=== PATIENT | female | born 1975 | race Caucasian/White ===

== ENCOUNTER 2017-06-18 12:19 | Emergency (ER) | payer OTHER ==
[~2017-06-18] VITALS: Ht 157.5 cm; Wt 113.2 kg
[2017-06-18 12:23] VITALS: BP 141/86; TEMP 99
[2017-06-18] MEDS ORDERED: DOXYCYCLINE 10100 MG PO (13:11)
[2017-06-18 14:12] VITALS: PULSE 74
== END 2017-06-18 14:13 | disposition home or self-care (01) ==
LOC: COL.ER 12:19
DX: L02.411 Cutaneous abscess of right axilla (principal); L03.111 Cellulitis of right axilla; F17.210 Nicotine dependence, cigarettes, uncomplicated

== ENCOUNTER 2017-10-26 22:49 | Emergency (ER) | payer OTHER ==
[~2017-10-26] VITALS: Ht 157.5 cm; Wt 106.4 kg
[~2017-10-26 22:49] MED LIST: DOXYCYCLINE 10100 MG PO
[2017-10-26 22:52] VITALS: BP 152/92
[2017-10-27 00:46] VITALS: PULSE 65; TEMP 97.5
== END 2017-10-27 00:45 | disposition home or self-care (01) ==
LOC: COL.ER 22:49
DX: H02.841 Edema of right upper eyelid (principal); H02.842 Edema of right lower eyelid; H02.844 Edema of left upper eyelid; H02.845 Edema of left lower eyelid; F32.9 Major depressive disorder, single episode, unspecified; F41.9 Anxiety disorder, unspecified; F17.210 Nicotine dependence, cigarettes, uncomplicated; Z98.890 Other specified postprocedural states
CPT/HCPCS: J8540

== ENCOUNTER 2018-03-22 11:50 | Emergency (ER) | payer OTHER ==
[~2018-03-22] VITALS: Ht 152.4 cm; Wt 113.6 kg
[2018-03-22 11:55] VITALS: BP 131/74; PULSE 72; TEMP 98.4
[2018-03-22] MEDS ORDERED: GENTAMICIN EYE D5 ML OD (12:57)
== END 2018-03-22 13:06 | disposition home or self-care (01) ==
LOC: COL.ER 11:50
DX: B99.9 Unspecified infectious disease (principal); H10.89 Other conjunctivitis; F17.210 Nicotine dependence, cigarettes, uncomplicated

== ENCOUNTER 2018-06-07 08:04 | Emergency (ER) | payer OTHER ==
[~2018-06-07] VITALS: Ht 157.5 cm; Wt 104.5 kg
[~2018-06-07 08:04] MED LIST changes: +GENTAMICIN EYE D5 ML OD
[2018-06-07 08:06] VITALS: TEMP 99.1
[2018-06-07] MEDS ORDERED: ELIMITE TOP ×2 (08:17)
[2018-06-07 08:50] LABS: BASO # 0.1 (0.0-0.2); BASO % 0.6 % (0.0-2.0); EOS # 0.3 (0.0-0.7); EOS % 2.3 % (0-4.0); GRAN # 8.4 (1.4-6.5); GRAN % 59.9 % (42.2-75.2); HEMATOCRIT 39.9 % (37.0-47.0); HEMOGLOBIN 13.6 g/dl (12.5-16.0); LYMPH # 4.3 (1.2-3.4); LYMPH % 30.6 % (20.0-51.0); MEAN CELL VOLUME 91 fl (80.0-100.0); MEAN CORPUSCULAR HEMOGLOBIN 31 pg (27.0-31.0); MEAN CORPUSCULAR HGB CONC 34 g/dl (33.0-37.0); MEAN PLATELET VOLUME 9.3 fl (7.4-10.4); MONO # 0.9 (0.1-0.6); MONO % 6.1 % (1.7-9.3); PLATELET COUNT 310 K/mm3 (130-400); RED BLOOD COUNT 4.39 M/mm3 (4.10-5.30); REDCELL DISTRIBUTION WIDTH-CV 13.2 % (11.5-14.5)
[2018-06-07 09:05] LABS: ALBUMIN 4.1 gm/dL (3.5-5.0); BILIRUBIN,TOTAL 0.2 mg/dL (0.0-1.0); C-REACTIVE PROTEIN 1.5 mg/dL (0.0-0.9); CALCIUM 9.3 mg/dL (8.4-10.2); CREATININE, serum 0.69 mg/dL (0.52-1.25); POTASSIUM 4.5 mmol/L (3.4-5.0); TOTAL PROTEIN 7.2 gm/dL (6.4-8.2)
[2018-06-07 09:18] LABS: COLLECTION METHOD CLEAN CATCH
[2018-06-07 09:25] LABS: MUCOUS Present /lpf; PH 5 (5-8); SQUAMOUS EPITHELIAL 0-2 /hpf; URINE APPEARANCE Clear; URINE BACTERIA None Seen /hpf; URINE BILIRUBIN Negative (NEGATIVE); URINE BLOOD Negative (NEGATIVE); URINE COLOR Yellow; URINE GLUCOSE Negative (NEGATIVE); URINE KETONE Negative (NEGATIVE); URINE LEUKOCYTE ESTERASE Negative (NEGATIVE); URINE NITRATE Negative (NEGATIVE); URINE PROTEIN(semi-quant) Negative (NEGATIVE); URINE RBC 0-2 /hpf; URINE UROBILINOGEN Negative (NEGATIVE)
[2018-06-07] MEDS ORDERED: AMOXICILLIN 8751 TAB PO (10:17)
[2018-06-07 10:40] VITALS: BP 124/779; PULSE 79
== END 2018-06-07 10:43 | disposition home or self-care (01) ==
LOC: COL.ER 08:04
PROVIDERS: Nurse Practitioner Primary Care
DX: K81.9 Cholecystitis, unspecified (principal); F17.210 Nicotine dependence, cigarettes, uncomplicated; Z90.710 Acquired absence of both cervix and uterus
CPT/HCPCS: Q9967

== ENCOUNTER 2018-06-17 09:30 | Day surgery (SDC) | payer OTHER ==
[~2018-06-17] VITALS: Ht 157.5 cm; Wt 105.6 kg
[~2018-06-17 09:30] MED LIST changes: +AMOXICILLIN 8751 TAB PO; +ELIMITE TOP
[2018-06-17 10:22] VITALS: BP 117/70; PULSE 65; TEMP 97.7
[2018-06-17] MEDS ORDERED: NORCO 325 MG-7.1 TAB PO (11:39)
[2018-06-17 12:30] VITALS: BP 138/77; PULSE 58; TEMP 97.9
[2018-06-17 12:45] VITALS: BP 131/73; PULSE 53
[2018-06-17 13:00] VITALS: BP 136/56; PULSE 56
[2018-06-17 13:15] VITALS: BP 109/65; PULSE 75
[2018-06-17 15:15] VITALS: BP 126/76; PULSE 53; TEMP 97.5
== END 2018-06-17 13:45 | disposition home or self-care (01) ==
LOC: SDCO 09:30
DX: K80.12 Calculus of gallbladder with acute and chronic cholecystitis without obstruction (principal); F17.210 Nicotine dependence, cigarettes, uncomplicated; Z90.710 Acquired absence of both cervix and uterus
CPT/HCPCS: J0690; J1170; J1885; J2405; J2550; J2704; J2710; J3010; J7120

== ENCOUNTER 2020-03-22 16:23 | Emergency (ER) | payer SELFPAY ==
[~2020-03-22] VITALS: Ht 157.5 cm; Wt 111.4 kg
[~2020-03-22 16:23] MED LIST changes: +NORCO 325 MG-7.1 TAB PO
[2020-03-22 16:26] VITALS: TEMP 98.1
[2020-03-22 17:43] LABS: COLLECTION METHOD CLEAN CATCH
[2020-03-22 17:49] LABS: PH 7 (5-8); SQUAMOUS EPITHELIAL 0-2 /hpf; URINE APPEARANCE Clear; URINE BACTERIA Rare /hpf; URINE BILIRUBIN Negative (NEGATIVE); URINE BLOOD Negative (NEGATIVE); URINE COLOR Straw; URINE GLUCOSE Negative (NEGATIVE); URINE KETONE Negative (NEGATIVE); URINE LEUKOCYTE ESTERASE Negative (NEGATIVE); URINE NITRATE Negative (NEGATIVE); URINE PROTEIN(semi-quant) Negative (NEGATIVE); URINE RBC 0-2 /hpf; URINE UROBILINOGEN Negative (NEGATIVE)
[2020-03-22 18:09] LABS: HEMOGLOBIN 13.7 g/dl (12.5-16.0); MEAN CELL VOLUME 91 fl (80.0-100.0); MEAN CORPUSCULAR HEMOGLOBIN 31 pg (27.0-31.0); MEAN CORPUSCULAR HGB CONC 34 g/dl (33.0-37.0); MEAN PLATELET VOLUME 8.9 fl (7.4-10.4); PLATELET COUNT 270 K/mm3 (130-400); RED BLOOD COUNT 4.42 M/mm3 (4.10-5.30); REDCELL DISTRIBUTION WIDTH-CV 12.6 % (11.5-14.5)
[2020-03-22 18:30] LABS: ALBUMIN 4.2 gm/dL (3.5-5.0); BILIRUBIN,TOTAL 0.3 mg/dL (0.0-1.0); CALCIUM 9.6 mg/dL (8.4-10.2); CREATININE, serum 0.69 (0.52-1.25); POTASSIUM 4.2 mmol/L (3.4-5.0); TOTAL PROTEIN 7.4 gm/dL (6.4-8.2)
[2020-03-22 18:58] LABS: EOSINOPHIL 5 % (0-4); LYMPHOCYTE 34 % (20.0-51.0); NEUTROPHILS 57 % (42.0-75.2); PLATELET ESTIMATE NORMAL (NORMAL)
[2020-03-22] MEDS ORDERED: FLEXERIL 1010 MG/TAB PO (19:03)
[2020-03-22 19:08] VITALS: BP 164/101; PULSE 88
== END 2020-03-22 19:15 | disposition home or self-care (01) ==
LOC: COL.ER 16:23
PROVIDERS: Nurse Practitioner
DX: M54.5 Low back pain (principal); F17.210 Nicotine dependence, cigarettes, uncomplicated

== ENCOUNTER 2023-09-04 07:13 | Emergency (ER) | payer SELFPAY ==
[~2023-09-04] VITALS: Ht 157.5 cm; Wt 105.9 kg
[~2023-09-04 07:13] MED LIST changes: +FLEXERIL 1010 MG/TAB PO; +ZOFRAN ODT4 MG PO
[2023-09-04 07:17] VITALS: TEMP 98
[2023-09-04 07:54] LABS: COLLECTION METHOD CLEAN CATCH
[2023-09-04 08:15] LABS: URINE COLOR Straw (YELLOW)
[2023-09-04 08:16] LABS: PH 5.5 (5.0-8.5); SQUAMOUS EPITHELIAL 0-2 /hpf (0-10); URINE APPEARANCE Clear (CLEAR/HAZY); URINE BLOOD 3+ (NEGATIVE); URINE GLUCOSE 2+ (NEGATIVE); URINE KETONE Negative (NEGATIVE); URINE NITRATE Negative (NEGATIVE); URINE PROTEIN(semi-quant) TRACE (NEGATIVE); URINE UROBILINOGEN 0.2 E.U/dL (0.2-1.0)
[2023-09-04 08:17] LABS: URINE BACTERIA Rare /hpf (NONE SEEN)
[2023-09-04] MEDS ORDERED: MACROBID 1100 MG/CAP PO (08:33)
[2023-09-04 08:49] VITALS: BP 155/75; PULSE 75
== END 2023-09-04 08:51 | disposition home or self-care (01) ==
LOC: COL.ER 07:13
PROVIDERS: Emergency Medicine
DX: N39.0 Urinary tract infection, site not specified (principal); F17.210 Nicotine dependence, cigarettes, uncomplicated

== ENCOUNTER 2024-07-30 16:17 | Emergency (ER) | payer SELFPAY ==
[~2024-07-30] VITALS: Ht 157.5 cm; Wt 104.5 kg
[~2024-07-30 16:17] MED LIST changes: +MACROBID 1100 MG/CAP PO
[2024-07-30] MEDS ORDERED: BACTRIM DS 8001 TAB PO (17:07)
[2024-07-30 17:18] VITALS: BP 158/98; PULSE 88; TEMP 98
== END 2024-07-30 17:18 | disposition home or self-care (01) ==
LOC: COL.ER 16:17
DX: L02.416 Cutaneous abscess of left lower limb (principal)